=== PATIENT | male | born 1960 | race Caucasian/White ===

== ENCOUNTER 2016-07-15 20:30 | Inpatient (IN) | payer MEDICARE, MEDICAID ==
[~2016-07-15] VITALS: Ht 167.6 cm; Wt 78.8 kg
[~2016-07-15 20:30] MED LIST: ASPIRIN E.C. 8181 MG PO; ATARAX 25MG25 MG/TAB PO; ATENOLOL25 MG PO; BENICAR HCT 12.1 TAB PO; FOLIC ACID 11 MG/TA1 PO; LEVAQUIN 2250 MG/TAB PO; LOPRESSOR 225 MG/TAB PO; LOPRESSOR 550 MG/TAB PO; NEPHROCAP PO; NORVASC 10MG10 MG PO; OPTIVAR OD; PHENERGAN W/CO120 ML PO; PHOS LO PO; PRINIVIL20 MG PO; REFRESH 1 ML1 ML OP; SODIUM FER62.5 MG/5 IV; SYNTHROID0.05 MG/TA PO; TOBRADEX EYE DRO5 ML OP; TRIAMCINOLONE0.1% TP; UNABLE; VITAMIN C500 MG PO; XYZAL5 MG PO; ZOFRAN ODT4 MG PO; ZPACK PO; [UNRECOGNIZED DRUG - CODE] SQ
[2016-07-15 22:35] VITALS: BP 163/77; PULSE 92; TEMP 98.6
[2016-07-15 22:56] LABS: MEAN CELL VOLUME 95 fl (80.0-100.0); MEAN CORPUSCULAR HGB CONC 32 g/dl (33.0-37.0); MEAN PLATELET VOLUME 10.1 fl (7.4-10.4); PLATELET COUNT 227 K/mm3 (130-400); RED BLOOD COUNT 1.86 M/mm3 (4.20-5.60); REDCELL DISTRIBUTION WIDTH-CV 14.7 % (11.5-14.5); WHITE BLOOD COUNT 13.8 K/mm3 (4.8-10.8)
[2016-07-15 23:07] LABS: HEMATOCRIT 17.7 % (42.0-52.0); HEMOGLOBIN 5.7 g/dl (13.5-18.0); MEAN CORPUSCULAR HEMOGLOBIN 31 pg (27.0-31.0)
[2016-07-15 23:08] LABS: CALCIUM 10.3 mg/dL (8.4-10.2); POTASSIUM 4.9 mmol/L (3.4-5.0)
[2016-07-15 23:10] LABS: ADD PATHOLOGY DIFF REVIEW NO
[2016-07-15 23:11] LABS: CREATININE, serum 10.34 mg/dL (0.66-1.25)
[2016-07-15 23:16] LABS: BAND 1 % (0-10); EOSINOPHIL 11 % (0-4); NEUTROPHILS 69 % (42.0-75.2); TOTAL CELLS COUNTED 100
[2016-07-16] VITALS (22 sets, daily range): BP systolic 107–149; BP diastolic 44–87; PULSE 72–94; TEMP 97.6–98.3
[2016-07-16 07:13] LABS: MEAN CELL VOLUME 91 fl (80.0-100.0); MEAN CORPUSCULAR HGB CONC 32 g/dl (33.0-37.0); MEAN PLATELET VOLUME 9.9 fl (7.4-10.4); PLATELET COUNT 154 K/mm3 (130-400); RED BLOOD COUNT 1.96 M/mm3 (4.20-5.60); REDCELL DISTRIBUTION WIDTH-CV 16.5 % (11.5-14.5); WHITE BLOOD COUNT 9.2 K/mm3 (4.8-10.8)
[2016-07-16 07:18] LABS: ADJUSTED CALCIUM 9.8 mg/dL (8.4-10.2); ALBUMIN 2.9 gm/dL (3.5-5.0); BILIRUBIN,TOTAL 0.4 mg/dL (0.0-1.0); CALCIUM 8.9 mg/dL (8.4-10.2); POTASSIUM 5.7 mmol/L (3.4-5.0); TOTAL PROTEIN 5.5 gm/dL (6.4-8.2)
[2016-07-16 07:19] LABS: HEMATOCRIT 17.8 % (42.0-52.0); HEMOGLOBIN 5.7 g/dl (13.5-18.0); MEAN CORPUSCULAR HEMOGLOBIN 29 pg (27.0-31.0)
[2016-07-16 07:20] LABS: ADD PATHOLOGY DIFF REVIEW NO; CREATININE, serum 9.7 mg/dL (0.66-1.25)
[2016-07-16 08:52] LABS: BAND 1 % (0-10); EOSINOPHIL 7 % (0-4); NEUTROPHILS 65 % (42.0-75.2); TOTAL CELLS COUNTED 100
[2016-07-16 08:53] LABS: ANISOCYTOSIS 1+; HYPOCHROMIA 1+
[2016-07-16 08:54] LABS: MICROCYTOSIS 1+
[2016-07-16 13:32] LABS: HEMATOCRIT 21.7 % (42.0-52.0); HEMOGLOBIN 7.3 g/dl (13.5-18.0)
[2016-07-16 23:07] LABS: HEMATOCRIT 24.3 % (42.0-52.0); HEMOGLOBIN 8.1 g/dl (13.5-18.0)
[2016-07-17] VITALS (8 sets, daily range): BP systolic 134–189; BP diastolic 66–96; PULSE 77–88; TEMP 97.5–99.9
[2016-07-17 09:23] LABS: MEAN CELL VOLUME 89 fl (80.0-100.0); MEAN CORPUSCULAR HGB CONC 33 g/dl (33.0-37.0); MEAN PLATELET VOLUME 10.3 fl (7.4-10.4); PLATELET COUNT 154 K/mm3 (130-400); RED BLOOD COUNT 2.71 M/mm3 (4.20-5.60); REDCELL DISTRIBUTION WIDTH-CV 16.6 % (11.5-14.5); WHITE BLOOD COUNT 9.2 K/mm3 (4.8-10.8)
[2016-07-17 09:32] LABS: HEMATOCRIT 24.2 % (42.0-52.0); HEMOGLOBIN 7.9 g/dl (13.5-18.0); MEAN CORPUSCULAR HEMOGLOBIN 29 pg (27.0-31.0)
[2016-07-17 09:39] LABS: CALCIUM 8.9 mg/dL (8.4-10.2); POTASSIUM 4.7 mmol/L (3.4-5.0)
[2016-07-17 09:52] LABS: CREATININE, serum 7.62 mg/dL (0.66-1.25)
[2016-07-18] VITALS (10 sets, daily range): BP systolic 122–179; BP diastolic 74–96; PULSE 64–87; TEMP 97.6–98.3
[2016-07-18 19:47] LABS: ADJUSTED CALCIUM 9.1 mg/dL (8.4-10.2); ALBUMIN 4.4 gm/dL (3.5-5.0); BILIRUBIN,TOTAL 0.7 mg/dL (0.0-1.0); CALCIUM 9.4 mg/dL (8.4-10.2); CREATININE, serum 1.63 mg/dL (0.66-1.25); TOTAL PROTEIN 8.4 gm/dL (6.4-8.2)
[2016-07-18 19:50] LABS: POTASSIUM 2.2 mmol/L (3.4-5.0)
[2016-07-19 03:51] VITALS: BP 127/74; PULSE 70; TEMP 97.4
[2016-07-19 07:39] VITALS: BP 110/57; PULSE 71; TEMP 98.3
[2016-07-19] MEDS ORDERED: PROTONIX 40MG T40 MG PO ×2 (11:09→11:14)
[2016-07-19 11:37] VITALS: BP 101/55; PULSE 78; TEMP 97.3
== END 2016-07-19 12:07 | disposition home health service (06) | DRG 377 ==
LOC: MEDICAL 20:30
PROVIDERS: Internal Medicine; Internal Medicine Gastroenterology; Internal Medicine Nephrology
PROC: 5A1D60Z (ICD-10-PCS; 2016-07-16)
PROC: 0DB68ZX Excision of Stomach, Via Natural or Artificial Opening Endoscopic, Diagnostic (ICD-10-PCS; principal; 2016-07-18 15:00)
DX: K26.4 Chronic or unspecified duodenal ulcer with hemorrhage (principal); N18.6 End stage renal disease; I12.0 Hypertensive chronic kidney disease with stage 5 chronic kidney disease or end stage renal disease; D62 Acute posthemorrhagic anemia; Z99.2 Dependence on renal dialysis; Z91.15 Patient's noncompliance with renal dialysis
CPT/HCPCS: J2250; J2405; J3010; J7030; P9016

== ENCOUNTER → 2016-09-05 | Outpatient (CLI) | payer MEDICARE, MEDICAID ==
[~2016-09-05] MED LIST changes: +COZAAR 50MG50 MG/TAB PO; +PRILOSEC 20MG20 MG PO; +PROTONIX 40MG T40 MG PO; +RENVELA800 MG PO
== END ==
LOC: COL.RAD 11:21
DX: Z11.1 Encounter for screening for respiratory tuberculosis (principal)

== ENCOUNTER 2016-12-14 11:17 | Emergency (ER) | payer MEDICARE, MEDICAID ==
[~2016-12-14 11:17] MED LIST changes: -COZAAR 50MG50 MG/TAB PO; -PRILOSEC 20MG20 MG PO; -RENVELA800 MG PO
[2016-12-14 11:25] VITALS: TEMP 97.9
[2016-12-14] MEDS ORDERED: COZAAR 50MG50 MG/TAB PO (12:50)
[2016-12-14] MEDS ORDERED: RENVELA800 MG PO (12:51)
[2016-12-14] MEDS ORDERED: PRILOSEC 20MG20 MG PO (12:51)
[2016-12-14 13:18] LABS: ADJUSTED CALCIUM 8.9 mg/dL (8.4-10.2); ALANINE AMINOTRANSFERASE 24 U/L (21-72); ALBUMIN 4.7 gm/dL (3.5-5.0); ALKALINE PHOSPHATASE 131 U/L (50-136); ANION GAP 23 mmol/L (7-16); BILIRUBIN,TOTAL 0.6 mg/dL (0.0-1.0); BLOOD UREA NITROGEN 46 mg/dL (9-20); CALCIUM 9.5 mg/dL (8.4-10.2); CARBON DIOXIDE 23 mmol/L (22-30); CHLORIDE 91 mmol/L (98-107); GLUCOSE 134 mg/dL (74-106); POTASSIUM 4.6 mmol/L (3.4-5.0); SODIUM 137 mmol/L (137-145); TOTAL PROTEIN 8.8 gm/dL (6.4-8.2)
[2016-12-14 13:20] LABS: C-REACTIVE PROTEIN < 0.5 mg/dL (0.0-0.9)
[2016-12-14 14:04] LABS: MEAN CELL VOLUME 92 fl (80.0-100.0); MEAN CORPUSCULAR HGB CONC 33 g/dl (33.0-37.0); MEAN PLATELET VOLUME 9.9 fl (7.4-10.4); PLATELET COUNT 192 K/mm3 (130-400); RED BLOOD COUNT 3.93 M/mm3 (4.20-5.60); REDCELL DISTRIBUTION WIDTH-CV 14.2 % (11.5-14.5); WHITE BLOOD COUNT 14.2 K/mm3 (4.8-10.8)
[2016-12-14 14:06] LABS: ADD PATHOLOGY DIFF REVIEW NO; HEMATOCRIT 36.2 % (42.0-52.0); HEMOGLOBIN 11.9 g/dl (13.5-18.0); MEAN CORPUSCULAR HEMOGLOBIN 30 pg (27.0-31.0)
[2016-12-14 14:10] LABS: PROTHROMBIN TIME 11.3 SECONDS (9.7-12.8)
[2016-12-14 14:14] LABS: PARTIAL THROMBOPLASTIN TIME 21.7 SECONDS (26.0-37.0)
[2016-12-14 14:21] LABS: EOSINOPHIL 3 % (0-4); NEUTROPHILS 72 % (42.0-75.2); PLATELET ESTIMATE NORMAL (NORMAL); TOTAL CELLS COUNTED 100
[2016-12-14 14:39] VITALS: BP 149/86; PULSE 99
== END 2016-12-14 14:46 | disposition short-term general hospital (02) ==
LOC: COL.ER 11:17
PROVIDERS: Emergency Medicine
DX: S06.350A Traumatic hemorrhage of left cerebrum without loss of consciousness, initial encounter (principal); I12.0 Hypertensive chronic kidney disease with stage 5 chronic kidney disease or end stage renal disease; N18.6 End stage renal disease; F79 Unspecified intellectual disabilities; K21.9 Gastro-esophageal reflux disease without esophagitis; M19.90 Unspecified osteoarthritis, unspecified site; Z99.2 Dependence on renal dialysis; Z79.82 Long term (current) use of aspirin; Z86.73 Personal history of transient ischemic attack (TIA), and cerebral infarction without residual deficits; Z90.89 Acquired absence of other organs; Z96.642 Presence of left artificial hip joint; Z98.890 Other specified postprocedural states; V89.9XXA Person injured in unspecified vehicle accident, initial encounter; Y92.481 Parking lot as the place of occurrence of the external cause
CPT/HCPCS: J1953; J7050

== ENCOUNTER → 2016-12-14 | Outpatient (CLI) | payer MEDICARE, MEDICAID ==
[2016-12-14 10:29] LABS: CREATININE, serum 8.85 mg/dL (0.66-1.25)
== END ==
LOC: COL.LAB 09:37
PROVIDERS: Otolaryngology
DX: R04.0 Epistaxis (principal)

== ENCOUNTER 2017-07-01 06:06 | Inpatient (IN) | payer MEDICARE ==
[~2017-07-01] VITALS: Ht 170.2 cm; Wt 80.6 kg
[~2017-07-01 06:06] MED LIST changes: +COZAAR 50MG50 MG/TAB PO; +PRILOSEC 20MG20 MG PO; +RENVELA800 MG PO
[2017-07-01] MEDS ORDERED: TOPROL XL 25MG25 MG PO (06:25)
[2017-07-01] MEDS ORDERED: RENVELA800 MG PO (06:27)
[2017-07-01] MEDS ORDERED: LIPITOR 40MG TA40 MG PO (06:29)
[2017-07-01] MEDS ORDERED: COZAAR100 MG PO (06:32)
[2017-07-01] MEDS ORDERED: PRILOSEC 20MG20 MG PO (06:33)
[2017-07-01 07:25] LABS: HEMATOCRIT 29.6 % (42.0-52.0); HEMOGLOBIN 9.6 g/dl (13.5-18.0); MEAN CELL VOLUME 93 fl (80.0-100.0); MEAN CORPUSCULAR HEMOGLOBIN 30 pg (27.0-31.0); MEAN CORPUSCULAR HGB CONC 32 g/dl (33.0-37.0); MEAN PLATELET VOLUME 11.1 fl (7.4-10.4); PLATELET COUNT 118 K/mm3 (130-400); REDCELL DISTRIBUTION WIDTH-CV 14.7 % (11.5-14.5)
[2017-07-01 07:34] LABS: BAND 1 % (0-10); LYMPHOCYTE 8 % (20.0-51.0); NEUTROPHILS 85 % (42.0-75.2); PLATELET ESTIMATE NORMAL (NORMAL)
[2017-07-01 07:35] LABS: ALBUMIN 4.5 gm/dL (3.5-5.0); CALCIUM 7.7 mg/dL (8.4-10.2); HYPOCHROMIA 1+; POTASSIUM 4.7 mmol/L (3.4-5.0); TOTAL PROTEIN 7.8 gm/dL (6.4-8.2)
[2017-07-01 07:43] LABS: CREATININE, serum 14.66 mg/dL (0.66-1.25)
[2017-07-01 07:46] LABS: TROPONIN-I 0.027 ng/mL (0.000-0.034)
[2017-07-01 08:15] LABS: INFLUENZA A NEGATIVE; INFLUENZA B NEGATIVE
[2017-07-01 09:37] VITALS: BP 172/94; PULSE 78; TEMP 97.9
[2017-07-01 11:33] VITALS: BP 152/80; PULSE 78; TEMP 98.4
[2017-07-01 15:42] VITALS: BP 183/87; PULSE 85; TEMP 97.9
[2017-07-01 19:34] VITALS: BP 179/92; PULSE 91; TEMP 97.3
[2017-07-01 23:50] VITALS: BP 171/84; PULSE 91; TEMP 99
[2017-07-02 03:22] VITALS: BP 161/92; PULSE 84; TEMP 98.3
[2017-07-02 07:28] LABS: MEAN CELL VOLUME 94 fl (80.0-100.0); MEAN CORPUSCULAR HGB CONC 31 g/dl (33.0-37.0); MEAN PLATELET VOLUME 11.5 fl (7.4-10.4); PLATELET COUNT 112 K/mm3 (130-400); RED BLOOD COUNT 3.13 M/mm3 (4.20-5.60); REDCELL DISTRIBUTION WIDTH-CV 14.8 % (11.5-14.5)
[2017-07-02 07:34] LABS: HEMATOCRIT 29.5 % (42.0-52.0); HEMOGLOBIN 9.2 g/dl (13.5-18.0); MEAN CORPUSCULAR HEMOGLOBIN 29 pg (27.0-31.0)
[2017-07-02 07:41] LABS: CALCIUM 8.2 mg/dL (8.4-10.2); POTASSIUM 4.8 mmol/L (3.4-5.0)
[2017-07-02 07:57] LABS: CREATININE, serum 9.43 mg/dL (0.66-1.25)
[2017-07-02 08:55] LABS: EOSINOPHIL 2 % (0-4); LYMPHOCYTE 8 % (20.0-51.0); NEUTROPHILS 77 % (42.0-75.2)
[2017-07-02 09:02] LABS: HYPOCHROMIA 2+; PLATELET ESTIMATE NORMAL (NORMAL)
[2017-07-02] MEDS ORDERED: ADALAT CC30 MG PO (10:55)
== END 2017-07-02 12:40 | disposition home or self-care (01) | DRG 682 ==
LOC: COL.ER 06:06 → MEDICAL 07:49
PROVIDERS: Emergency Medicine; Internal Medicine
PROC: 5A1D70Z Performance of Urinary Filtration, Intermittent, Less than 6 Hours Per Day (ICD-10-PCS; principal; 2017-07-01)
PROC: 5A1D70Z Performance of Urinary Filtration, Intermittent, Less than 6 Hours Per Day (ICD-10-PCS; 2017-07-02)
DX: I12.0 Hypertensive chronic kidney disease with stage 5 chronic kidney disease or end stage renal disease (principal); N18.6 End stage renal disease; Z99.2 Dependence on renal dialysis; I16.0 Hypertensive urgency; D63.1 Anemia in chronic kidney disease; Z91.15 Patient's noncompliance with renal dialysis
CPT/HCPCS: J0692; J0882; J1650

== ENCOUNTER 2017-08-01 03:21 | Inpatient (IN) | payer MEDICARE ==
[2017-08-01] VITALS (17 sets, daily range): BP systolic 144–206; BP diastolic 83–112; PULSE 62–84; TEMP 97.2–98.8
[~2017-08-01] VITALS: Ht 165.1 cm; Wt 80.0 kg
[~2017-08-01 03:21] MED LIST changes: +ADALAT CC30 MG PO; +AMOXICILLIN875 MG PO; +CATAPRES 0.1MG0.1 MG PO; +COZAAR100 MG PO; +DELSYM30 MG/5 ML PO; +LIPITOR 40MG TA40 MG PO; +LIQUIFILM TEARS15 ML OU; +MELATONIN1 MG PO; +NORVASC 5MG5 MG/TAB PO; +RENO CAPS1 SGL PO; +TOPROL XL 25MG25 MG PO; +TRIPHROCAPS SOFT1 MG PO; +ZOVIRAX800 MG PO
[2017-08-01 03:48] LABS: BASO # 0.1 (0.0-0.2); EOS # 0.9 (0.0-0.7); EOS % 8.5 % (0-4.0); GRAN # 7.1 (1.4-6.5); GRAN % 65.5 % (42.2-75.2); HEMATOCRIT 28.8 % (42.0-52.0); LYMPH # 1.1 (1.2-3.4); LYMPH % 10.1 % (20.0-51.0); MEAN CELL VOLUME 95 fl (80.0-100.0); MEAN CORPUSCULAR HEMOGLOBIN 30 pg (27.0-31.0); MEAN CORPUSCULAR HGB CONC 31 g/dl (33.0-37.0); MONO # 1.5 (0.1-0.6); MONO % 13.6 % (1.7-9.3); PLATELET COUNT 145 K/mm3 (130-400); RED BLOOD COUNT 3.02 M/mm3 (4.20-5.60); REDCELL DISTRIBUTION WIDTH-CV 14.6 % (11.5-14.5)
[2017-08-01 03:55] LABS: INR 1.1 (0.8-3.0); PROTHROMBIN TIME 12.3 SECONDS (9.7-12.8)
[2017-08-01 03:57] LABS: ALBUMIN 4.3 gm/dL (3.5-5.0); BILIRUBIN,TOTAL 0.4 mg/dL (0.0-1.0); CALCIUM 7.7 mg/dL (8.4-10.2); PARTIAL THROMBOPLASTIN TIME 26.2 SECONDS (26.0-37.0); POTASSIUM 4.5 mmol/L (3.4-5.0); TOTAL PROTEIN 7.5 gm/dL (6.4-8.2)
[2017-08-01 04:00] LABS: CREATININE, serum 10.77 mg/dL (0.66-1.25)
[2017-08-01 04:08] LABS: TROPONIN-I 0.013 ng/mL (0.000-0.034)
[2017-08-01] MEDS ORDERED: NORVASC 5MG5 MG/TAB PO (05:03)
[2017-08-01] MEDS ORDERED: DULCOLAX STOOL100 MG PO (05:04)
[2017-08-01] MEDS ORDERED: VTAMINC250TA (05:05)
[2017-08-01] MEDS ORDERED: B COMPLEX #11 TAB (05:08)
[2017-08-02 02:46] VITALS: BP 175/87; PULSE 71; TEMP 98.8
[2017-08-02 04:00] VITALS: BP 169/68; PULSE 77
[2017-08-02 07:12] LABS: HEMATOCRIT 27.9 % (42.0-52.0); HEMOGLOBIN 8.7 g/dl (13.5-18.0); MEAN CELL VOLUME 96 fl (80.0-100.0); MEAN CORPUSCULAR HEMOGLOBIN 30 pg (27.0-31.0); MEAN CORPUSCULAR HGB CONC 31 g/dl (33.0-37.0); PLATELET COUNT 144 K/mm3 (130-400); RED BLOOD COUNT 2.92 M/mm3 (4.20-5.60); REDCELL DISTRIBUTION WIDTH-CV 14.9 % (11.5-14.5)
[2017-08-02 07:23] LABS: BILIRUBIN,TOTAL 0.5 mg/dL (0.0-1.0); CALCIUM 8.2 mg/dL (8.4-10.2); PHOSPHOROUS 5.9 mg/dL (2.5-4.5); POTASSIUM 4.3 mmol/L (3.4-5.0); TOTAL PROTEIN 6.9 gm/dL (6.4-8.2)
[2017-08-02 07:33] LABS: CREATININE, serum 8.6 mg/dL (0.66-1.25)
[2017-08-02 08:09] LABS: BAND 1 % (0-10); EOSINOPHIL 6 % (0-4); LYMPHOCYTE 19 % (20.0-51.0); NEUTROPHILS 60 % (42.0-75.2)
[2017-08-02 08:10] LABS: HYPOCHROMIA 2+
[2017-08-02 08:12] LABS: PLATELET ESTIMATE NORMAL (NORMAL)
[2017-08-02 10:19] VITALS: BP 181/76; PULSE 71; TEMP 98
== END 2017-08-02 14:22 | disposition home or self-care (01) | DRG 640 ==
LOC: COL.ER 03:21 → MEDICAL 04:19
PROVIDERS: Emergency Medicine; Internal Medicine Nephrology
PROC: 5A1D70Z Performance of Urinary Filtration, Intermittent, Less than 6 Hours Per Day (ICD-10-PCS; principal; 2017-08-01)
PROC: 5A1D70Z Performance of Urinary Filtration, Intermittent, Less than 6 Hours Per Day (ICD-10-PCS; 2017-08-02)
DX: E87.70 Fluid overload, unspecified (principal); N18.6 End stage renal disease; I12.0 Hypertensive chronic kidney disease with stage 5 chronic kidney disease or end stage renal disease; I16.0 Hypertensive urgency; Z99.2 Dependence on renal dialysis; D64.9 Anemia, unspecified; E03.9 Hypothyroidism, unspecified; Z96.641 Presence of right artificial hip joint; Z86.73 Personal history of transient ischemic attack (TIA), and cerebral infarction without residual deficits
CPT/HCPCS: J0882; J1940; J2270; J2916

== ENCOUNTER → 2018-01-22 | Outpatient (CLI) | payer MEDICARE ==
[~2018-01-22] MED LIST changes: +B COMPLEX #11 TAB; +DULCOLAX STOOL100 MG PO; +VTAMINC250TA
== END ==
LOC: COL.RAD 13:35 → COL.LAB 13:35
DX: Z11.1 Encounter for screening for respiratory tuberculosis (principal)

== ENCOUNTER 2019-06-12 23:08 | Inpatient (IN) | payer MEDICARE, BC ==
[~2019-06-12] VITALS: Ht 167.6 cm; Wt 73.6 kg
[~2019-06-12 23:08] MED LIST changes: +ASPIRIN 81M81 MG/TA2 PO; +LEVOXYL0.05 MG PO; +ZANTAC 150MG T150 MG PO
[2019-06-13 00:06] LABS: BASO # 0.1 (0.0-0.2); BASO % 0.9 % (0.0-2.0); EOS # 0.5 (0.0-0.7); EOS % 4.3 % (0-4.0); GRAN # 8.4 (1.4-6.5); GRAN % 72.9 % (42.2-75.2); LYMPH # 1.2 (1.2-3.4); LYMPH % 10.8 % (20.0-51.0); MEAN CELL VOLUME 92 fl (80.0-100.0); MEAN CORPUSCULAR HGB CONC 31 g/dl (33.0-37.0); MEAN PLATELET VOLUME 10.4 fl (7.4-10.4); MONO # 1.2 (0.1-0.6); MONO % 10.4 % (1.7-9.3); PLATELET COUNT 197 K/mm3 (130-400); RED BLOOD COUNT 3.46 M/mm3 (4.20-5.60); REDCELL DISTRIBUTION WIDTH-CV 13.8 % (11.5-14.5)
[2019-06-13 00:07] LABS: HEMATOCRIT 31.8 % (42.0-52.0); HEMOGLOBIN 9.8 g/dl (13.5-18.0); MEAN CORPUSCULAR HEMOGLOBIN 28 pg (27.0-31.0)
[2019-06-13 00:18] LABS: PROTHROMBIN TIME 11.2 SECONDS (9.7-12.8)
[2019-06-13 00:21] LABS: ALBUMIN 4.4 gm/dL (3.5-5.0); BILIRUBIN,TOTAL 0.4 mg/dL (0.0-1.0); CALCIUM 8.3 mg/dL (8.4-10.2); CREATININE, serum 10.7 (0.66-1.25); PARTIAL THROMBOPLASTIN TIME 31.3 SECONDS (26.0-37.0); POTASSIUM 5.2 mmol/L (3.4-5.0); TOTAL PROTEIN 7.6 gm/dL (6.4-8.2)
[2019-06-13 00:33] LABS: TROPONIN-I 0.034 ng/mL (0.000-0.035)
[2019-06-13] MEDS ORDERED: PHOS LO (00:41)
[2019-06-13] MEDS ORDERED: PRIL40 PO (00:42)
[2019-06-13] MEDS ORDERED: RENVELA800 MG PO (00:44)
[2019-06-13 02:35] VITALS: BP 181/90; PULSE 80; TEMP 97.9
[2019-06-13 03:53] VITALS: BP 157/86; PULSE 77; TEMP 97.8
--- NOTE | 2019-06-13 04:08 | NUR ---
PATIENT TO ROOM 350 AT 0230. ASSESSMENTS DONE. MED RX DONE. BP ELEVATED, 181/90. DR. HOLMAN CALLED, PRN HYDRALAZINE ORDERED AND GIVEN. BP 150s/80s AFTER 1 HR. ABD DISTENDED AND FIRM, BOWEL SOUNDS ACTIVE. NO EDEMA NOTED. INT TO R AC. NO FURTHER NEEDS AT THIS TIME. WILL CONTINUE TO MONITOR.
[2019-06-13 08:04] VITALS: BP 174/93; PULSE 83; TEMP 98.1
--- NOTE | 2019-06-13 09:00 | NUR ---
Patient down to dialysis in a wheelchair.
--- NOTE | 2019-06-13 12:00 | NUR ---
Patient returns to floor from dialysis. Patient remains alert and oriented, reports that he is feeling better. Assisted patient to bathroom SBA and then to bed where he ate lunch. Patient denies pain or further needs at this time, call light within reach.
[2019-06-13 12:21] VITALS: BP 174/94; PULSE 82; TEMP 97.4
--- NOTE | 2019-06-13 14:56 | NUR ---
Manager [employer] met with patient to discuss discharge planning. Patient lives alone in [place] and his brother, Kenn (ph#[phone]) is his DPOA-HC. Advance Directives located in EMR. Patient sees Dr. Hull for primary care and obtains medications from [facility] with no difficulties. Patient does not use any DME and is independent with [facility]. Patient plans to return home upon discharge. SW to continue to follow as needed.
[2019-06-13 15:27] VITALS: BP 174/89; PULSE 84; TEMP 97.7
--- NOTE | 2019-06-13 18:50 | NUR ---
REPORT RECEIVED FROM BETH VILLAR. CARE OF PT ASSUMED AT THIS TIME. PT DENIES ANY NEEDS CURRENTLY. CALL LIGHT WITHIN REACH.
[2019-06-13 20:26] VITALS: BP 176/92; PULSE 79; TEMP 98.2
--- NOTE | 2019-06-13 20:30 | NUR ---
PT IS ALERT, OX4 AND APPROPRIATE. PT DENIES HAVING ANY PAIN OR SOB. SOME CRACKLES NOTED TO BILAT BASES OF LUNG [place]. PT REPORTS HAVING DECREASED URINE OUTPUT, PER HIS NORMAL. VS OBTAINED AT THIS TIME AND BP FOUND TO BE ELEVATED, PT DENIES ANY DELGADO OR VISION CHANGES. ADDITIONAL DOSE OF HYDRALAZINE GIVEN PER ORDERS. PT INSTRUCTED TO CALL FOR ASSIST WHEN UP FROM BED, PT IS AGREEABLE TO THIS. CALL LIGHT WITHIN REACH.
[2019-06-14] VITALS (10 sets, daily range): BP systolic 157–190; BP diastolic 76–100; PULSE 76–87; TEMP 97.7–98.9
--- NOTE | 2019-06-14 05:17 | NUR ---
DR HOLMAN CONTACTED REGARDING PT BP OF 178/100; REPORTED TO DOCTOR THAT PT BP HAS BEEN ELEVATED WITH EACH VS CHECK TONIGHT AND IS TRENDING UPWARDS DESPITE RECEIVING DOSES OF HYDRALAZINE Q4 PRN SEVERAL TIMES. NO NEW ORDERS RECEIVED; DR HOLMAN STATES "I'LL LOOK AT IT TOMORROW."
--- NOTE | 2019-06-14 06:26 | NUR ---
PT HAS HAD A GOOD NIGHT, SLEPT WELL. PT BP HAS BEEN ELEVATED THROUGH THEE NIGHT, REQUIRING DOSES OF HYDRALAZINE PRN WITH NO RESOLUTION. PT DENIES ANY DELGADO OR VISION CHANGES. PT HAS NOT VOIDED AT ALL THIS SHIFT. PT STATES THAT HE TYPICALLY DOES NOT VOID VERY OFTEN. NO OTHER COMPLAINTS FROM PT AT THIS TIME. CALL LIGHT WITHIN REACH.
[2019-06-14 07:40] LABS: BASO # 0.1 (0.0-0.2); BASO % 1.2 % (0.0-2.0); EOS # 0.4 (0.0-0.7); EOS % 4.2 % (0-4.0); GRAN # 6.5 (1.4-6.5); LYMPH # 1.2 (1.2-3.4); LYMPH % 12.6 % (20.0-51.0); MEAN CELL VOLUME 93 fl (80.0-100.0); MEAN CORPUSCULAR HGB CONC 30 g/dl (33.0-37.0); MEAN PLATELET VOLUME 10.8 fl (7.4-10.4); MONO # 1.2 (0.1-0.6); MONO % 12.6 % (1.7-9.3); PLATELET COUNT 202 K/mm3 (130-400); RED BLOOD COUNT 3.48 M/mm3 (4.20-5.60); REDCELL DISTRIBUTION WIDTH-CV 14.2 % (11.5-14.5)
[2019-06-14 07:42] LABS: HEMATOCRIT 32.2 % (42.0-52.0); HEMOGLOBIN 9.7 g/dl (13.5-18.0); MEAN CORPUSCULAR HEMOGLOBIN 28 pg (27.0-31.0)
[2019-06-14 07:52] LABS: CALCIUM 8.5 mg/dL (8.4-10.2); CREATININE, serum 8.03 (0.66-1.25); PHOSPHOROUS 3.3 mg/dL (2.5-4.5); POTASSIUM 5.2 mmol/L (3.4-5.0)
--- NOTE | 2019-06-14 08:00 | NUR ---
Patient resting in bed eating breakfast at this time. Patient is alert and oriented, answers questions appropriately. Patient denies pain or needs, states he would like to go home today. Call light within reach.
--- NOTE | 2019-06-14 17:20 | NUR ---
Patient resting in bed awaiting dinner at this time. Patient remains alert and oriented, continues to deny pain or needs, call light within reach.
--- NOTE | 2019-06-14 19:20 | NUR ---
Lying in bed with eyes open. Denies pain. Explains that he hopes he is able to go home tomorrow. Denies any needs at this time.
--- NOTE | 2019-06-14 21:37 | NUR ---
BP elevated, 175/85. Administered apresoline as prescribed. Patient denies further needs at this time.
[2019-06-15 01:21] VITALS: BP 182/106
--- NOTE | 2019-06-15 01:22 | NUR ---
BP 182/106. Administered apresoline as prescribed. Patient says that he feels fine. Is worried that he will not be able to go home in the morning. Reassurance provided. Patient denies further needs.
[2019-06-15 04:16] VITALS: BP 158/92; PULSE 80; TEMP 98.2
--- NOTE | 2019-06-15 04:24 | NUR ---
Lying in bed with eyes closed. Eyes open when enter room. Denies pain. Explains that he really hopes he is able to go home today after his dialysis. Reassurance provided to the patient. Patient denies further needs at this time.
[2019-06-15 07:10] VITALS: BP 181/87; PULSE 83; TEMP 98.1
[2019-06-15 09:09] LABS: BASO # 0.1 (0.0-0.2); BASO % 1.1 % (0.0-2.0); EOS # 0.4 (0.0-0.7); EOS % 4.5 % (0-4.0); GRAN # 6.4 (1.4-6.5); GRAN % 70.4 % (42.2-75.2); HEMOGLOBIN 10.2 g/dl (13.5-18.0); LYMPH # 1.1 (1.2-3.4); LYMPH % 12.6 % (20.0-51.0); MEAN CELL VOLUME 90 fl (80.0-100.0); MEAN CORPUSCULAR HEMOGLOBIN 28 pg (27.0-31.0); MEAN CORPUSCULAR HGB CONC 32 g/dl (33.0-37.0); MEAN PLATELET VOLUME 10.8 fl (7.4-10.4); MONO # 0.9 (0.1-0.6); MONO % 10.4 % (1.7-9.3); PLATELET COUNT 195 K/mm3 (130-400); REDCELL DISTRIBUTION WIDTH-CV 14.1 % (11.5-14.5)
[2019-06-15 09:10] LABS: HEMATOCRIT 32.4 % (42.0-52.0)
[2019-06-15 09:17] LABS: ALBUMIN 4.1 gm/dL (3.5-5.0); CALCIUM 8.9 mg/dL (8.4-10.2); CREATININE, serum 8.37 (0.66-1.25); PHOSPHOROUS 2.5 mg/dL (2.5-4.5); POTASSIUM 4.5 mmol/L (3.4-5.0)
[2019-06-15] MEDS ORDERED: NORVASC 10MG10 MG PO (11:05)
[2019-06-15] MEDS ORDERED: TOPROL XL 50MG50 MG PO (11:05)
[2019-06-15 12:18] VITALS: BP 176/81; PULSE 84; TEMP 97.7
--- NOTE | 2019-06-15 12:45 | NUR ---
Had dialysis in AM. No complaints. Dr. Estrada talked with patient and brother about dosage increase of blood pressure medications. Dismissed to home per w/c.
== END 2019-06-15 12:45 | disposition home or self-care (01) | DRG 682 ==
LOC: COL.ER 23:08 → SURG 06-13 00:53
PROVIDERS: Emergency Medicine; ADMIT Internal Medicine Nephrology
PROC: 5A1D70Z Performance of Urinary Filtration, Intermittent, Less than 6 Hours Per Day (ICD-10-PCS; principal; 2019-06-13)
DX: I12.0 Hypertensive chronic kidney disease with stage 5 chronic kidney disease or end stage renal disease (principal); N18.6 End stage renal disease; E87.70 Fluid overload, unspecified; I16.0 Hypertensive urgency; Z99.2 Dependence on renal dialysis; Z86.73 Personal history of transient ischemic attack (TIA), and cerebral infarction without residual deficits; E03.9 Hypothyroidism, unspecified; Z96.641 Presence of right artificial hip joint; Z79.82 Long term (current) use of aspirin; Z79.891 Long term (current) use of opiate analgesic
CPT/HCPCS: J1644; J2405; J7030